=== PATIENT | female | born 1935 | race African-American/Black ===

== ENCOUNTER 2021-01-02 12:12 | Emergency (ER) | payer MEDICARE ==
[~2021-01-02] VITALS: Ht 157.5 cm; Wt 85.7 kg
[2021-01-02 12:41] LABS: BASOPHILS # (AUTO) 0.1 (0.0-0.1); BASOPHILS % 0.4 % (0.0-1.0); EOSINOPHILS # (AUTO) 0.1 (0.0-0.4); EOSINOPHILS % 0.3 % (0.0-6.0); HEMOGLOBIN 9.7 g/dL (12.0-16.0); LYMPHOCYTES # (AUTO) 0.6 (1.0-3.2); LYMPHOCYTES % 3.6 % (18.0-39.1); MEAN CORPUSCULAR HEMOGLOBIN 25.7 pg (28-32); MEAN CORPUSCULAR HGB CONC 34.6 g/dL (31-35); MEAN CORPUSCULAR VOLUME 74.1 fL (81-99); MONOCYTES # (AUTO) 1.6 (0.2-0.8); MONOCYTES % 9.5 % (4.4-11.3); NEUTROPHILS # (AUTO) 13.8 (2.1-6.9); NEUTROPHILS % 80.8 % (38.7-80.0); PLATELET COUNT 188 x10e3/uL (140-360); RED BLOOD COUNT 3.78 x10e6/uL (3.6-5.1); RED CELL DISTRIBUTION WIDTH 28.1 % (11.7-14.4)
[2021-01-02 12:59] LABS: INR 1.7; PROTHROMBIN TIME 21.3 seconds (11.9-14.5)
[2021-01-02 13:14] LABS: ALBUMIN 2.1 g/dL (3.5-5.0); ALBUMIN/GLOBULIN RATIO 0.4 (0.8-2.0); ANION GAP 22.1 mmol/L (8-16); CALCIUM 7.8 mg/dL (8.4-10.2); CREATININE, SERUM 8.58 mg/dL (0.57-1.11); POTASSIUM 5.1 mmol/L (3.5-5.1)
[2021-01-02 13:25] LABS: THYROID STIMULATING HORMONE 8.377 uIU/mL (0.350-4.940)
[2021-01-02 14:19] LABS: CLARITY,URINE CLOUDY (CLEAR); COLOR,URINE ORANGE (YELLOW); KETONES,URINE NEGATIVE (NEGATIVE); LEUKOCYTE ESTERASE ,URINE TRACE (NEGATIVE); NITRITE,URINE NEGATIVE (NEGATIVE); PROTEIN,URINE DIPSTICK 1+ (NEGATIVE)
[2021-01-02 14:20] LABS: URINE UROBILINOGEN 2 mg/dL (0.2 - 1)
[2021-01-02 14:25] LABS: BACTERIA,URINE MANY /HPF; RBC,URINE >50 /HPF (0-5); WBC,URINE (MAN) 21-50 /HPF (0-5)
[2021-01-02 14:26] LABS: EPITHELIAL CELLS,URINE MANY /LPF; RENAL EPITHELIAL CELLS,URINE FEW; TRANSITIONAL EPI CELLS,URINE FEW
[2021-01-02] MEDS ORDERED: CEFEPIME 1 GM in SODIUM CHLORIDE 0.9% 50ML 50 ML IV ONE (14:30)
[2021-01-02] MEDS ORDERED: LACTATED RINGER'S 1,000 ML INJ ONE (14:30)
[2021-01-02] MEDS ORDERED: LACTATED RINGER'S 1,000 ML ONE (14:37)
== END 2021-01-02 18:14 | disposition other institution (70) ==
LOC: ER 13:32
DX: J69.0 Pneumonitis due to inhalation of food and vomit (principal); K76.7 Hepatorenal syndrome; R53.1 Weakness; I10 Essential (primary) hypertension; K76.9 Liver disease, unspecified; Z20.822 Contact with and (suspected) exposure to COVID-19
CPT/HCPCS: 36415; 71045; 80053; 81001; 82140; 83605; 83880; 84443; 84484; 85025; 85610; 87040; 87086; 93005; 99284; J0692; J7121; U0002